=== PATIENT | male | born 1985 | race African-American/Black ===

== ENCOUNTER 2018-08-20 20:52 | Emergency (ER) | payer BC ==
[2018-08-20] MEDS ORDERED: Sodium Chloride 0.9% 10 ML Syringe FLUSH PRN (21:02)
[2018-08-20] MEDS ORDERED: Sodium Chloride 0.9% 1,000 ML IV ONE ×2 (21:02→22:47)
[2018-08-20 21:32] LABS: CHLORIDE,CL 99 mmol/L (98-107); SODIUM,NA 139 mmol/L (136-145)
--- NOTE | 2018-08-20 22:06 | EDM.PDOC ---
ED HPI GENERAL MEDICAL PROBLEM - General Chief Complaint: Genitourinary Problem Stated Complaint: Abd pain, hematuria, recent dx UTI Time Seen by Provider: 08/20/18 21:00 Source of Information: Reports: Patient History Limitations: Reports: Language Barrier (mild) - History of Present Illness INITIAL COMMENTS - FREE TEXT/NARRATIVE: Patient comes to ER complaining of hematuria that has been present for "several hours" Was driving back to [place] from [place] earlier today and stopped at an ER in [facility] to be evaluated due to lower abdominal pain. Patient says no hematuria was present at that time. They performed a urinalysis and recommended a scan to look for Kidney stone. Patient refused scan, saying he would wait and do it here in [place]. They did give him a prescription for Bactrim. He is not certain if they told him if he had a UTI. The abdominal pain is bilateral and in the lower abdomen. Denies weight changes, fevers/chills, nausea/emesis/bowel changes. Does not report similar episodes of hematuria in past. Was seen in the clinic and in the ER Jul 18 for rectal bleeding but that resolved. Has history of frequent episodes low back pain. Admits to excess ETOH use, 6+ ETOH drinks daily. Says " I have to quit" No history of detox/DUI/treatment given by patient. No other acute changes/complaints. Pain does not radiate anywhere. Does not seem to change with eating/drinking/ urinating/BM/positional changes. Patient has not been very hungry/thirsty today. Bilateral Lower Abdomen Pain Score (Numeric/FACES): 9 - Related Data Allergies Allergy/AdvReac Type Severity Reaction Status Date / Time No Known Allergies Allergy Verified 08/20/18 20:53 Home Meds: Home Meds Ibuprofen 400 mg PO TID PRN 07/18/18 [History] Sulfamethoxazole/Trimethoprim [Bactrim Ds Tablet] 1 tab PO BID 08/20/18 [History ] Past Medical History Respiratory History: Reports: Other (See Below) (smoker) Gastrointestinal History: Reports: Other (See Below) Other Gastrointestinal History: Had incidence of positive occult 07/2018 while in for alcohol poisoning Other Genitourinary History: testicular torsion in [place] 2008, pt unsure Psychiatric History: Reports: Addiction (ETOH) - Past Surgical History GI Surgical History: Reports: Other (See Below) Other GI Surgeries/Procedures: testicular torsion in [place] 2008, pt unsure Male Surgical History: Reports: Other (See Below) Other Male Surgeries/Procedures: Testical removal Social & Family History - Tobacco Use Smoking Status *Q: Current Every Day Smoker Years of Tobacco use: 2 Packs/Tins Daily: 0.5 - Caffeine Use Caffeine Use: Reports: Energy Drinks Other Caffeine Use: 2 times per week - Alcohol Use Alcohol Use History: Yes Days Per Week of Alcohol Use: 7 Number of Drinks Per Day: 6 Total Drinks Per Week: 42 Alcohol Use in Last Twelve Months: Yes Alcohol Use Frequency: Daily Alcohol Use Comment: Patient admits to heavy ETOH use - Recreational Drug Use Recreational Drug Use: No ED ROS GENERAL - Review of Systems Review Of Systems: See Below Constitutional: Reports: Decreased Appetite. Denies: Fever, Weakness, Fatigue, Diaphoresis, Weight Loss, Weight Gain HEENT: Reports: No Symptoms Respiratory: Reports: No Symptoms Cardiovascular: Reports: No Symptoms GI/Abdominal: Reports: Abdominal Pain, Decreased Appetite. Denies: Black Stool , Bloody Stool, Constipation, Diarrhea, Difficulty Swallowing, Nausea, Vomiting : Reports: Hematuria. Denies: Flank Pain, Urinary Retention Musculoskeletal: Reports: Back Pain (chronic low back pain) Skin: Reports: No Symptoms Neurological: Reports: No Symptoms Psychiatric: Reports: No Symptoms ED EXAM, RENAL/ - Physical Exam Exam: See Below Exam Limited By: No Limitations General Appearance: Alert, WD/WN, No Apparent Distress Eye Exam: Bilateral Eye: EOMI, PERRL, Other (mild icterus) Ears: Normal External Exam, Normal Canal Nose: No: Nasal Deformity, Nasal Swelling, Nasal Drainage Throat/Mouth: Normal Lips, Normal Teeth, Normal Voice, No Airway Compromise Head: Atraumatic, Normocephalic Neck: Supple, Non-Tender, Full Range of Motion Respiratory/Chest: No Respiratory Distress, Lungs Clear, Normal Breath Sounds, No Accessory Muscle Use, Chest Non-Tender Cardiovascular: Normal Peripheral Pulses, No Murmur, Tachycardia GI/Abdominal: Normal Bowel Sounds, No Distention, Guarding, Tender (bilateral lower abdomen, right greater than left). No: Rigid, Rebound, Hepatomegaly, Splenomegaly (Male) Exam: Deferred Rectal (Males) Exam: Deferred Back Exam: Normal Inspection. No: CVA Tenderness (L), CVA Tenderness (R), Muscle Spasm, Paraspinal Tenderness, Vertebral Tenderness Extremities: Normal Inspection, Normal Range of Motion, Non-Tender, No Pedal Edema, Normal Capillary Refill Neurological: Alert, Oriented, Normal Cognition, No Motor/Sensory Deficits Psychiatric: Normal Affect, Normal Mood Skin Exam: Warm, Dry, Intact, Normal Color Course - Vital Signs Last Recorded V/S: Last Vital Signs Temp 37.4 C 08/20/18 20:58 Pulse 104 H 08/20/18 20:58 Resp 18 08/20/18 20:58 BP 138/91 H 08/20/18 20:58 Pulse Ox 100 08/20/18 20:58 - Orders/Labs/Meds Orders: Active Orders 24 hr Category Date Time Status Abdomen Pelvis wo Cont [CT] Stat Exams 08/20/18 21:01 Ordered ETHANOL BLOOD MEDICAL [CHEM] Routine Lab 08/20/18 21:50 Ordered Sodium Chloride 0.9% [Saline Flush] Med 08/20/18 21:02 Ordered 10 ml FLUSH ASDIRECTED PRN Saline Lock Insert [OM.PC] Routine Oth 08/20/18 21:02 Ordered Medication Orders Sodium Chloride (Saline Flush) 10 ml FLUSH ASDIRECTED PRN PRN Reason: Keep Vein Open Labs: Laboratory Tests 08/20/18 08/20/18 Range/Units 21:15 21:15 WBC 10.3 H (4.0-10.2) K/uL RBC 5.29 (4.33-5.41) M/uL Hgb 17.1 H (13.1-16.8) g/dL Hct 48.8 (39.0-49.0) % MCV 92.2 (84.0-98.0) fL MCH 32.3 (28.2-33.3) pg MCHC 35.0 (31.7-36.0) g/dL RDW 15.0 H (11.2-14.1) % Plt Count 111 L (150-350) K/uL Neut % (Auto) 68.3 (45.0-80.0) % Lymph % (Auto) 17.3 (10.0-50.0) % Gregg % (Auto) 13.4 (2.0-14.0) % Eos % (Auto) 0.6 (0.0-5.0) % Baso % (Auto) 0.4 (0.0-2.0) % Neut # (Auto) 7.02 H (1.40-7.00) K/uL Lymph # (Auto) 1.77 (0.50-3.50) K/uL Gregg # (Auto) 1.37 H (0.00-1.00) K/uL Eos # (Auto) 0.06 (0.00-0.50) K/uL Baso # (Auto) 0.04 (0.00-0.20) K/uL Sodium 139 (136-145) mmol/L Potassium 4.7 (3.5-5.1) mmol/L Chloride 99 (98-107) mmol/L Carbon Dioxide 27.1 (21.0-32.0) mmol/L BUN 10 (7-18) mg/dL Creatinine 0.86 (0.51-1.17) mg/dL Est Cr Clr Drug Dosing 120.87 mL/min Estimated GFR (MDRD) > 60 mL/min Glucose 101 (74-106) mg/dL Calcium 9.1 (8.5-10.1) mg/dL Total Bilirubin 1.9 H (0.2-1.0) mg/dL AST 68 H (15-37) U/L ALT 75 (12-78) U/L Alkaline Phosphatase 86 (46-116) IU/L Total Protein 8.0 (6.4-8.2) g/dL Albumin 4.0 (3.4-5.0) g/dL Meds: Medications Generic Name Dose Route Start Last Admin Trade Name Freq PRN Reason Stop Dose Admin Sodium Chloride 10 ml 08/20/18 21:02 Saline Flush FLUSH ASDIRECTED PRN Keep Vein Open Discontinued Medications Generic Name Dose Route Start Last Admin Trade Name Freq PRN Reason Stop Dose Admin Sodium Chloride 1,000 mls @ 999 mls/hr 08/20/18 21:02 08/20/18 21:22 Normal Saline IV 08/20/18 22:02 999 mls/hr .BOLUS ONE Administration - Radiology Interpretation CT Results Date: 08/20/18 CT Results Time: 22:21 (Possible bladder rupture) - Re-Assessments/Exams Free Text/Narrative Re-Assessment/Exam: UA sample showed gross blood, lab unable to process specimen. Elevated Hgb at 17 Chem showed bili of 1.9, increased from normal level obained Jul 18. AST continues to be elevated. Platelets 111, WBC 10.3 NS IV bolus ordered as well as noncontrast CT of abdomen and pelvis. 08/20/18 22:38 Radiology notes that bladder appears to be full of blood. Fluid noted around bladder. Bladder rupture cannot be excluded. Patient denies trauma of any sort. Call placed to [facility]. Will transfer patient to their facility for further evaluation. Urology/surgery available. MS given for pain prior to transfer. Departure - Departure Time of Disposition: 22:40 Disposition: DC/Tfer to Acute Hospital 02 Condition: Good Clinical Impression: Gross hematuria, H/O ETOH abuse, LFT elevation Abdominal pain Qualifiers: Abdominal location: generalized Qualified Code(s): R10.84 - Generalized abdominal pain - Discharge Information Referrals: Jill Babin, DEGREASING SOLUTION RECLAIMER [Primary Care Provider] - Forms: ED Department Discharge - My Orders Last 24 Hours: My Active Orders 08/20/18 21:01 Abdomen Pelvis wo Cont [CT] Stat 08/20/18 21:02 Sodium Chloride 0.9% [Saline Flush] 10 ml FLUSH ASDIRECTED PRN Saline Lock Insert [OM.PC] Routine 08/20/18 21:50 ETHANOL BLOOD MEDICAL [CHEM] Routine - Assessment/Plan Last 24 Hours: My Active Orders 08/20/18 21:01 Abdomen Pelvis wo Cont [CT] Stat 08/20/18 21:02 Sodium Chloride 0.9% [Saline Flush] 10 ml FLUSH ASDIRECTED PRN Saline Lock Insert [OM.PC] Routine 08/20/18 21:50 ETHANOL BLOOD MEDICAL [CHEM] Routine
[2018-08-20] MEDS ORDERED: Ondansetron 4 MG/2 ML SDV IVPUSH ONE (22:40)
[2018-08-20] MEDS ORDERED: Morphine 10 MG/ML Syringe IVPUSH ONE (22:40)
== END 2018-08-20 23:30 ==
LOC: LL.ED 20:52
DX: R31.0 Gross hematuria (principal); F10.10 Alcohol abuse, uncomplicated; R10.84 Generalized abdominal pain; F17.210 Nicotine dependence, cigarettes, uncomplicated; R79.89 Other specified abnormal findings of blood chemistry
CPT/HCPCS: 36415; 74176; 80053; 85025; 96361; 96374; 96375; 99285; G0480; J2270; J2405; J7030

== ENCOUNTER 2019-02-04 17:40 | Emergency (ER) | payer BC, OTHER ==
[2019-02-04] MEDS ORDERED: traMADol 50 MG Tab PO ONE (18:13)
--- NOTE | 2019-02-04 18:18 | EDM.PDOC ---
ED HPI GENERAL MEDICAL PROBLEM - General Chief Complaint: Upper Extremity Injury/Pain Stated Complaint: Left hand injury Time Seen by Provider: 02/04/19 17:58 Source of Information: Reports: Patient History Limitations: Reports: No Limitations - History of Present Illness INITIAL COMMENTS - FREE TEXT/NARRATIVE: Patient had left hand get caught in a machine at [employer], and had crush injury between to plates of metal. Has pain/swelling in dorsal palm area, tenderness radiating down 4th and 5th fingers of hand. There are werner in his skin dorsal side of top half palm from the metal plate. Very small laceration noted in this area of the dorsal hand that is not actively bleeding. No numbness/tingling. No other complaints. Left Hand Pain Score (Numeric/FACES): 8 - Related Data Allergies Allergy/AdvReac Type Severity Reaction Status Date / Time No Known Allergies Allergy Verified 02/04/19 17:57 Home Meds: Home Meds . [No Known Home Meds] 02/04/19 [History] Past Medical History - Past Health History Medical/Surgical History: Denies Medical/Surgical History Respiratory History: Reports: Other (See Below) Gastrointestinal History: Reports: Other (See Below) Other Gastrointestinal History: Had incidence of positive occult 07/2018 while in for alcohol poisoning Other Genitourinary History: testicular torsion in [facility] 2007, pt unsure Psychiatric History: Reports: Addiction - Past Surgical History GI Surgical History: Reports: Other (See Below) Other GI Surgeries/Procedures: [facility], pt unsure Male Surgical History: Reports: Other (See Below) Other Male Surgeries/Procedures: Testical removal Social & Family History - Tobacco Use Smoking Status *Q: Current Every Day Smoker Tobacco Use Within Last Twelve Months: Cigars (2 daily) Tobacco Use Comment: Patient was smoking 1/2 ppd over winter but now reports switching to cigars Smoking Cessation Information Provided To Patient: Patient Refused - Caffeine Use Caffeine Use: Reports: Energy Drinks Other Caffeine Use: 2 times per week - Alcohol Use Alcohol Use History: Yes Days Per Week of Alcohol Use: 2 Number of Drinks Per Day: 5 Total Drinks Per Week: 10 Total Drinks Per Week Comment: Patient reported drinking approximately 6 drinks daily when he was seen last July. Now reports having around 5 drinks in a day on weekends but no drinking ETOH during the week. Alcohol Use in Last Twelve Months: Yes - Recreational Drug Use Recreational Drug Use: No Drug Use in Last 12 Months: No Review of Systems - Review of Systems Review Of Systems: ROS reveals no pertinent complaints other than HPI. ED EXAM, GENERAL - Physical Exam Exam: See Below Exam Limited By: No Limitations General Appearance: Alert, WD/WN, Mild Distress Eye Exam: Bilateral Eye: Conjunctival Injection (mild), EOMI, PERRL Head: Atraumatic, Normocephalic Neck: Supple Respiratory/Chest: No Respiratory Distress Peripheral Pulses: 2+: Radial (L) Extremities: Normal Capillary Refill, Other (mild edema of left hand but no deformity. Brisk cap refill noted all fingernails. Can move fingers (flex/extend ) but has pain limitation. Fingers nontender however palpation of palm reveals diffuse tenderness. Wrist did not appear tender focally. Can move wrist. ). No : Increased Warmth, Mottled, Pallor Neurological: Alert, Oriented, Normal Cognition Psychiatric: Normal Affect, Normal Mood Skin Exam: Warm, Dry, Other (very tiny superficial laceration noted dorsal hand. No bleeding noted. Has outlines of metal plate pattern that compressed his hand still visable on skin of dorsal surface mid hand) Course - Vital Signs Last Recorded V/S: Last Vital Signs Temp 36.8 C 02/04/19 18:00 Pulse 64 02/04/19 18:00 Resp 20 02/04/19 18:00 BP 115/74 02/04/19 18:00 Pulse Ox 100 02/04/19 18:00 - Orders/Labs/Meds Orders: Active Orders 24 hr Category Date Time Status Vaccines to be Administered [RC] PER UNIT ROUTINE Care 02/04/19 18:23 Ordered Hand Comp Min 3V Lt [CR] Stat Exams 02/04/19 17:44 Taken Meds: Medications Discontinued Medications Generic Name Dose Route Start Last Admin Trade Name Freq PRN Reason Stop Dose Admin Diphtheria/Tetanus/Acell Pertussis 0.5 ml 02/04/19 18:23 02/04/19 18:37 Adacel IM 02/04/19 18:24 0.5 ml .ONCE ONE Administration Tramadol HCl 100 mg 02/04/19 18:13 02/04/19 18:36 Ultram PO 02/04/19 18:14 100 mg ONETIME ONE Administration - Radiology Interpretation Free Text/Narrative:: Xray of hand did not show obvious fracture. Radiology to review formally. - Re-Assessments/Exams Free Text/Narrative Re-Assessment/Exam: 02/04/19 18:34 No obvious fracture noted on Xray. Nurse wrapped patient's hand in Marcos wrap and applied pre-michael wrist splint for extra support. Patient given tomorrow and Monday off of work. To get rechecked at clinic on Monday. Further restrictions as needed to be determined at that time. Tramadol PO given. Lengthy discussed of signs/symptoms of compartment syndrome with patient. Precautions reviewed. To follow up in ER if any concerns or symptoms of compartment syndrome develop. Tetanus immunization given. Laceration was very small and did not require suturing. Departure - Departure Time of Disposition: 18:30 Disposition: Eloped 07 Condition: Good Clinical Impression: Crushing injury of left hand Qualifiers: Encounter type: initial encounter Qualified Code(s): S67.22XA - Crushing injury of left hand, initial encounter - Discharge Information *PRESCRIPTION DRUG MONITORING PROGRAM REVIEWED*: Not Applicable *COPY OF PRESCRIPTION DRUG MONITORING REPORT IN PATIENT ANAHY: Not Applicable Instructions: Tramadol tablets, Crush Injury of the Hand, [id number] Referrals: Jill Babin, ENERGY EFFICIENCY ENGINEER [Primary Care Provider] - Forms: ED Department Discharge Additional Instructions: OK to take Tylenol or Ibuprofen or Aleve for pain. Ice/elevate and wear splint for protections and comfort. Call the clinic tomorrow and make a follow up appointment to get rechecked on Monday, two days from now. Observe for changes that could suggest compartment syndrome as we discussed in the ER, and return to the ER for recheck if you have any concerns. - My Orders Last 24 Hours: My Active Orders 02/04/19 17:44 Hand Comp Min 3V Lt [CR] Stat 02/04/19 18:23 Vaccines to be Administered [RC] PER UNIT ROUTINE - Assessment/Plan Last 24 Hours: My Active Orders 02/04/19 17:44 Hand Comp Min 3V Lt [CR] Stat 02/04/19 18:23 Vaccines to be Administered [RC] PER UNIT ROUTINE
[2019-02-04] MEDS ORDERED: Diphtheria,Pertussis(Acell),Tetanus Vaccine 0.5 ML SDV IM ONE (18:23)
== END 2019-02-04 18:55 | disposition home or self-care (01) ==
LOC: LL.ED 17:40
DX: S67.22XA Crushing injury of left hand, initial encounter (principal); F17.290 Nicotine dependence, other tobacco product, uncomplicated; Z23 Encounter for immunization; W23.0XXA Caught, crushed, jammed, or pinched between moving objects, initial encounter
CPT/HCPCS: 73130; 90471; 90715; 99283; A9270

== ENCOUNTER → 2019-06-07 | Outpatient (CLI) | payer BC | LOC: LL.DI 16:00 | PROVIDERS: ATTEND Nurse Practitioner Family | DX: M79.675 Pain in left toe(s) (principal); S92.425A Nondisplaced fracture of distal phalanx of left great toe, initial encounter for closed fracture; X58.XXXA Exposure to other specified factors, initial encounter | CPT/HCPCS: 73660-TA ==